=== PATIENT | male | born 2000 | race Caucasian/White ===

== ENCOUNTER 2018-04-15 21:02 | Emergency (ER) | payer BC ==
[2018-04-15 21:25] VITALS: BP 145/83; PULSE 120; TEMP 98; BMI 25.8
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
[2018-04-15] MEDS ORDERED: DIPHTH,PERTUSS(ACELL),TET 0.5 ML DISP.SYRIN IM ONE (22:08)
== END 2018-04-15 22:06 | disposition home or self-care (01) ==
LOC: JER 21:02 → JERFT 21:02
PROC: 0JQG0ZZ Repair Right Lower Arm Subcutaneous Tissue and Fascia, Open Approach (ICD-10-PCS; principal; 2018-04-15)
PROC: 3E0234Z Introduction of Serum, Toxoid and Vaccine into Muscle, Percutaneous Approach (ICD-10-PCS; 2018-04-15)
DX: S51.011A Laceration without foreign body of right elbow, initial encounter (principal); S00.31XA Abrasion of nose, initial encounter; S80.212A Abrasion, left knee, initial encounter; S80.211A Abrasion, right knee, initial encounter; S40.812A Abrasion of left upper arm, initial encounter; S40.811A Abrasion of right upper arm, initial encounter; V18.0XXA Pedal cycle driver injured in noncollision transport accident in nontraffic accident, initial encounter; Y92.410 Unspecified street and highway as the place of occurrence of the external cause; Y93.55 Activity, bike riding; Y99.8 Other external cause status
CPT/HCPCS: 99281-25